=== PATIENT | female | born 1995 | race African-American/Black ===

== ENCOUNTER 2018-10-13 17:09 | Emergency (ER) | payer MEDICAID, SELFPAY ==
[2018-10-13 17:10] VITALS: BP 124/80; PULSE 92; RESP 16; TEMP 36.2; O2SAT 100; BMI 37.0
--- NOTE | 2018-10-13 17:28 | US_ITS ---
STUDY: FIRST TRIMESTER OBSTETRICAL ULTRASOUND REASON FOR EXAM: Female, 23 years old. Bleeding, early , cramping LMP: 08/05/2018 TECHNIQUE: Transvaginal TECHNICAL QUALITY: Adequate. PRIOR ULTRASOUND: None. FINDINGS: There is visualization of a single gestational sac in a normal intrauterine position. The mean sac diameter (MSD) measures 3.96 cm, indicating an estimated gestational age (EGA) of 9 weeks, 4 days. The gestational sac shape is within normal limits. There is a visualized yolk sac. The yolk sac measures 4.3 mm. The placenta is non-visualized due to early gestation. There is visualization of a live embryo. The crown-rump length (CRL) measures 3.16 cm, indicating an estimated gestational age (EGA) of 10 weeks, 1 days. There is demonstrated cardiac activity with a heart rate of 164 bpm. The estimated gestation age (EGA) by LMP is 9 weeks, 6 days. The estimated date of delivery (DAI) by LMP is 05/12/2019. The estimated gestation age (EGA) by US is 9 weeks, 6 days. The estimated date of delivery (DAI) by US is 05/12/2019. The uterus measures 13.4 x 7.9 x 6.6 cm. There is no demonstrated uterine fibroid. The cervix is closed. The right ovary is not visualized. The left ovary measures 4.1 x 2.5 x 2.1 cm. There is no left ovarian cyst. There is no visualized left adnexal mass or complex lesion. There is no fluid in the cul de sac. US/Transvaginal w/Preg US IMPRESSION: 1. Early intrauterine correlating to gestational age of 9 weeks and 6 days. Embryonic cardiac activity measured at 164 bpm. Electronically Signed: Chauncey Christopher MD at 19:00 EST , Service support ,
[2018-10-13] MEDS: Acetaminophen 500 MG Tablet 1000 MG PO (17:42)
[2018-10-13] MEDS: 0.9% Normal Saline 1,000 ML 1000 ML IV (17:42)
[2018-10-13 17:53] LABS: Absolute Lymphocyte Count 2.41 X10^3/ul (0.83-4.51); Absolute Neutrophil Count 6.4 X10^3/uL (2.0-7.7); Basophil# 0.01 X10^3/uL; Basophil% 0.1 % (0-1); Eosinophils% 1.1 % (0-5); Hematocrit 39.3 % (37-47); Hemoglobin 13.4 g/dl (12.0-15.0); Lymphocyte # 2.41 X10^3/ul (4.0); Lymphocyte % 25.3 % (19-41); Mean Corp Hgb Conc 34.1 g/gl (32-36); Mean Corpuscular Hgb 31.8 pg (27.0-32.0); Mean Corpuscular Volume 93.3 fL (81-99); Mean Platelet Vol. 9.6 fl (6.2-12.0); Monocyte# 0.52 X10^3/uL; Monocyte% 5.5 % (0-10); Neutrophil # 6.43 X10^3/uL (2.7-7.7); Neutrophil % 67.5 % (47-70); POSITIVE COUNT NO; POSITIVE DIFFERENTIAL NO; POSITIVE MORPHOLOGY NO; Platelet Count 256 K/mm3 (150-450); RBC Distribution Width CV 12.2 % (11.6-14.6); RBC Distribution Width SD 41.6 fl (35.1-43.9); Red Blood Count 4.21 M/mm3 (4.2-5.4); White Blood Count 9.5 K/mm3 (4.4-11.0)
[2018-10-13 18:05] LABS: Anion Gap 7 (5-15); BUN 7 mg/dL (7-18); Calcium,Total 8.6 mg/dL (8.5-10.1); Chloride 107 mmol/L (98-107); Creatinine, Serum 0.54 mg/dL (0.55-1.02); EST Glomerular Filtration Rate 145 mL/min (>60); Est Glom Filt Rate - Afr Amer 176 mL/min (>60); Estimated Creatinine Clearance 131.74 ml/min; Glucose 75 mg/dL (74-106); Potassium 3.7 mmol/L (3.5-5.1); Sodium Level 139 mmol/L (136-145)
[2018-10-13 19:01] LABS: Red Blood Cells-Urine 0 SEEN /hpf (0-5)
[2018-10-13 19:09] VITALS: BP 108/60; PULSE 81; RESP 14; O2SAT 99
[2018-10-13 19:09] LABS: Color, Urine Yellow (Yellow); Glucose, Dipstick 50 mg/dl (Normal); Ketone-Dipstick 5 mg/dl (Negative); Leukocyte Esterase-Dipstick 100 /ul (Negative); Nitrite-Dipstick Negative (Negative); Occult Blood-Urine 250 /ul (Negative); Protein-Dipstick Negative (Negative); Specific Gravity, Urine 1.025 (1.002-1.030); Urine Clarity Clear (Clear); Urine Urobilinogen 4 mg/dl (Normal)
[2018-10-13 19:15] LABS: Squamous Epithelial Cells - UA 5-10 SEEN /hpf (5-10); Urine Bilirubin Dipstick 1 mg/dL (Negative); White Blood Cells 0-5 SEEN /hpf (0-5)
[2018-10-13 19:16] LABS: Mucous, Urine 1+ /hpf (<or=2+)
[2018-10-13 19:23] LABS: Amorphous Sediment 1+; Bacteria 1+ /hpf (None Seen)
--- NOTE | 2018-10-13 19:54 | ED.VISSUMM ---
- ER Visit Summary Date of Service: 10/13/18 Chief Complaint: Pelvic pain History of Present Illness: The patient is a 23 F with pelvic pain. She is AB 1 at 9 weeks and 6 days. She follows with Dr. Campoverde. She reports pelvic pain that started 2 hours ago. She has lower abdominal cramping. She also has bleeding that is similar to a menstrual period. No discharge. No fevers. No urinary symptoms. No GI symptoms. Physical Examination: Afebrile and vital signs unremarkable. Alert and oriented. No acute distress. Abdomen soft and nontender. HEENT appears normal. Pelvic exam deferred. Test Results: CBC normal. BMP unremarkable. Urinalysis shows 0-5 white cells, 5-10 epithelial cells, 1+ bacteria. I sent a culture. HCG was 92,000. Blood type was O+. Ultrasound showed a closed cervix, live IUP at 9 weeks and 6 days, and heart rate 164. Emergency Department Course and Treatment: Patient was treated with Tylenol for her cramps. Workup as above. She has a live intrauterine . Cervix is closed. Urine culture pending. Otherwise labs and vitals unremarkable. Patient has a threatened miscarriage. I discussed this with her. She will be discharged to follow-up with her INSTRUCTOR [employer]ER[employer]. Return for increasing pain, bleeding, or any other new or worsening issues. Treatment Plan: As above Disposition: Discharge Impression: 1. Threatened miscarriage This note was generated with [employer] software. It may contain incorrect words, spelling, and punctuation that were not noted in review of the chart prior to signing ED Disposition - Plan for ED Patient: Referrals: Care Physician,No Primary [Primary Care Provider] -
--- NOTE | 2018-10-13 19:57 | ED.DCSUM_ITS ---
- ER Visit Summary Date of Service: 10/13/18 Chief Complaint: Pelvic pain History of Present Illness: The patient is a 23 F with pelvic pain. She is AB 1 at 9 weeks and 6 days. She follows with Dr. Campoverde. She reports pelvic pain that started 2 hours ago. She has lower abdominal cramping. She also has bleeding that is similar to a menstrual period. No discharge. No fevers. No urinary symptoms. No GI symptoms. Physical Examination: Afebrile and vital signs unremarkable. Alert and oriented. No acute distress. Abdomen soft and nontender. HEENT appears normal. Pelvic exam deferred. Test Results: CBC normal. BMP unremarkable. Urinalysis shows 0-5 white cells, 5-10 epithelial cells, 1+ bacteria. I sent a culture. HCG was 92,000. Blood type was O+. Ultrasound showed a closed cervix, live IUP at 9 weeks and 6 days, and heart rate 164. Emergency Department Course and Treatment: Patient was treated with Tylenol for her cramps. Workup as above. She has a live intrauterine . Cervix is closed. Urine culture pending. Otherwise labs and vitals unremarkable. Patient has a threatened miscarriage. I discussed this with her. She will be discharged to follow-up with her INTERACTIVE ACCOUNT MANAGER. Return for increasing pain, bleeding, or any other new or worsening issues. Treatment Plan: As above Disposition: Discharge Impression: 1. Threatened miscarriage This note was generated with [employer] software. It may contain incorrect words, spelling, and punctuation that were not noted in review of the chart prior to signing ED Disposition - Plan for ED Patient: Referrals: Care Physician,No Primary [Primary Care Provider] -
--- NOTE | 2018-10-13 19:57 | ED.DEP ---
ED Disposition - Plan for ED Patient: Instructions: ED Miscarriage Poss Additional Instructions: Follow up with your OBGYN.
[2018-10-13 20:10] VITALS: BP 110/74; PULSE 90; RESP 14; O2SAT 99
== END 2018-10-13 20:11 | disposition home or self-care (01) ==
PROVIDERS: Emergency Provider Emergency Medicine
DX: O20.0 Threatened abortion (principal); Z3A.09 9 weeks gestation of pregnancy
CPT/HCPCS: 76817; 80048; 81001; 84702; 85025; 86900; 86901; 87086; 87088; 96360; 99283; J7030; A4216

== ENCOUNTER 2018-11-21 13:30 | Emergency (ER) | payer MEDICAID, SELFPAY ==
[2018-11-21 13:30] VITALS: BP 131/74; PULSE 137; RESP 15; TEMP 37.1; O2SAT 98; BMI 35.6
--- NOTE | 2018-11-21 14:03 | ED.VISSUMM ---
- ER Visit Summary Date of Service: 11/21/18 Chief Complaint: Possible STD History of Present Illness: The patient is a 23 F who presents with possible STD. Patient states she recently found out that her was cheating on her. Patient is concerned that she may have an STD because of this. Patient denies any vaginal discharge. Patient denies any dysuria or hematuria. Patient denies any abdominal pain or cramping. Patient states she is approximately 15 weeks . Physical Examination: Vital signs are stable. Patient is afebrile. Patient is in no acute distress. Oral mucosa is pink and moist. Neck is supple. Trachea is midline. There is no JVD noted. Heart was regular rate and rhythm. Lungs are clear and equal bilateral. Abdomen is soft. Bowel sounds are normal. There is no tenderness. There is no guarding noted. Skin is warm dry. Cranial nerves II through XII are intact. There are no focal motor or sensory deficits noted. The remaining physical exam is within normal limits. Test Results: Urinalysis was normal. GC and Chlamydia cultures are pending. Emergency Department Course and Treatment: She was given Rocephin and Zithromax here. Patient was instructed to avoid sexual intercourse until she follows up with her primary care physician or INDUSTRY SEGMENT SPECIALIST. Patient was instructed to follow-up in 5-7 days. She understood and was agreeable with the plan. All questions were answered. Disposition: Discharge home Impression: STD exposure This note was generated with [employer] dictation software. It may contain incorrect words, spelling, and punctuation that were not noted in review of the chart prior to signing ED Disposition - Plan for ED Patient: Disposition: Home or Assisted Living Diagnosis: STD exposure Instructions: ED Urethritis Infec Vs Inflam Fem Referrals: Care Physician,No Primary [Primary Care Provider] - Demetrius Sagastume MD [STAFF PHYSICIAN] - 5-7 Days Additional Instructions: Avoid sexual intercourse until you follow-up with your primary care physician or INDUSTRY SEGMENT SPECIALIST.
--- NOTE | 2018-11-21 14:07 | ED.DCSUM_ITS ---
- ER Visit Summary Date of Service: 11/21/18 Chief Complaint: Possible STD History of Present Illness: The patient is a 23 F who presents with possible STD. Patient states she recently found out that her was cheating on her. Patient is concerned that she may have an STD because of this. Patient d enies any vaginal discharge. Patient denies any dysuria or hematuria. Patient denies any abdominal pain or cramping. Patient states she is approximately 15 weeks . Physical Examination: Vital signs are stable. Patient is afebrile. Patient is in no acute distress. Oral mucosa is pink and moist. Neck is supple. Trachea is midline. There is no JVD noted. Heart was regular rate and rhythm. Lungs are clear and equal bilateral. Abdomen is soft. Bowel sounds are normal. There is no tenderness. There is no guarding noted. Skin is warm dry. Cranial nerves II through XII are intact. There are no focal motor or sensory deficits noted. The remaining physical exam is within normal limits. Test Results: Urinalysis was normal. GC and Chlamydia cultures are pending. Emergency Department Course and Treatment: She was given Rocephin and Zithromax here. Patient was instructed to avoid sexual intercourse until she follows up with her primary care physician or CHRONIC SPECIALIST. Patient was instructed to follow-up in 5-7 days. She understood and was agreeable with the plan. All questions were answered. Disposition: Discharge home Impression: STD exposure This note was generated with [employer] dictation software. It may contain incorrect words, spelling, and punctuation that were not noted in review of the chart prior to signing ED Disposition - Plan for ED Patient: Disposition: Home or Assisted Living Diagnosis: STD exposure Instructions: ED Urethritis Infec Vs Inflam Fem Referrals: Care Physician,No Primary [Primary Care Provider] - Demetrius Sagastume MD [STAFF PHYSICIAN] - 5-7 Days Additional Instructions: Avoid sexual intercourse until you follow-up with your primary care physician or CHRONIC SPECIALIST.
[2018-11-21 14:39] LABS: Red Blood Cells-Urine 0 SEEN /hpf (0-5)
[2018-11-21 14:48] LABS: Color, Urine Yellow (Yellow); Glucose, Dipstick 250 mg/dl (Normal); Leukocyte Esterase-Dipstick 25 /ul (Negative); Nitrite-Dipstick Negative (Negative); Occult Blood-Urine Negative /ul (Negative); Protein-Dipstick 30 mg/dl (Negative); Urine Bilirubin Dipstick Negative (Negative); Urine Clarity Sl. Cloudy (Clear); Urine Urobilinogen 4 mg/dl (Normal)
[2018-11-21 14:53] LABS: Ketone-Dipstick 150 mg/dl (Negative)
[2018-11-21 14:54] LABS: Bacteria 1+ /hpf (None Seen); Mucous, Urine 2+ /hpf (<or=2+); Squamous Epithelial Cells - UA 0-5 SEEN /hpf (5-10); White Blood Cells 0-5 SEEN /hpf (0-5)
[2018-11-21] MEDS: Azithromycin 250 MG Tablet 1000 MG PO (16:28)
[2018-11-21] MEDS: Ceftriaxone 500 MG Vial 250 MG IM (16:28)
--- NOTE | 2018-11-21 16:53 | ED.RN ---
INJECTION SITE ASSESSED FOR REACTION AND NO SWELLING, REDNESS, OR TENDERNESS WAS NOTED.
[2018-11-21 17:17] LABS: Chlamydia Trachomatis by PCR Negative (Negative); Neisserai gonorrhoeae by PCR Negative (Negative); Probe Check PASS; Sample Adequacy Control PASS; Specimen Processing Control PASS
== END 2018-11-21 16:54 | disposition home or self-care (01) ==
PROVIDERS: Emergency Provider Emergency Medicine
DX: O99.89 Other specified diseases and conditions complicating pregnancy, childbirth and the puerperium (principal); Z20.2 Contact with and (suspected) exposure to infections with a predominantly sexual mode of transmission; O99.332 Smoking (tobacco) complicating pregnancy, second trimester; Z3A.15 15 weeks gestation of pregnancy
CPT/HCPCS: 81001; 87491; 87591; 96372; 99283

== ENCOUNTER 2018-12-27 07:28 | Emergency (ER) | payer MEDICAID, SELFPAY ==
[2018-12-27] VITALS (8 sets, daily range): BP systolic 121–129; BP diastolic 64–78; PULSE 67–110; RESP 14–18; TEMP 36.6–36.7; O2SAT 99–100; BMI 36.1
--- NOTE | 2018-12-27 07:46 | ED.VIS.PSYCH ---
History of Present Illness Chief Complaint: Anxiety Informant: Patient, Family Onset: Weeks Context: Sudden Onset Conflict: Family Timing: Continuous Current Severity: Moderate Maximum Severity: Severe Worsened by: Situational factors, - - Suicidal thoughts after first dose of Prozac Monday. Has not taken Prozac since. Prozac was prescribed by steamer gum candy. Relieved by: Nothing Associated Symptoms: Depressed, Change in sleeping, Paranoia. Negative for: Suicidal Thoughts, Easily distracted, Grandiosity, Flight of Ideas, Increased activity, Pressured Speech, Agitated, Hostile, Threatening, Confusion, Visual Hallucinations, Auditory Hallucinations Specific plan (suicidal thought): No suicidal ideation Narrative: Patient is a 23-year-old woman who is approximately 5 months gestation. She states she found out that her was cheating on her. She had an encounter with a male after she knew this. She states she was tested for HIV 2 weeks after the encounter. She reports problems with sleep, anxiety, chest pain, shortness of breath, anxiety. She informed her steamer gum candy who prescribed Prozac. She discontinued after first dose. She is scheduled to have an appointment on December 31 at [facility]. She denies suicidal homicidal thoughts. She believes any time she has any type of symptom the cause is that she is HIV positive. Mother is requesting admission. Prior similar symptoms: Yes Recent Illness/Hospitalization: No Past Medical History - Allergies and Home Meds Allergies/Adverse Reactions: Allergies No Known Allergies Allergy (Verified 12/27/18 07:33) Primary Care Physician: Care Physician,No Primary [Primary Care Provider] - Prior records reviewed: Yes Surgical History: noncontributory Lives: Spouse/ Significant Other Smoking Status: Current every day smoker Drugs: None Review of Systems General: Denies: Chills, Fever, Sweats Eyes: Denies: Visual changes - bilaterally, Blurred Vision - bilaterally, Diplopia ENT: Denies: Rhinorrhea, Sore throat Cardiovascular: Reports: Chest pain, Palpitations Respiratory: Reports: Dyspnea. Denies: Cough, Dyspnea on exertion Gastrointestinal: Reports: Nausea. Denies: Abdominal pain, Vomiting, Diarrhea, Melena, Hematochezia Genitourinary: Denies: Dysuria, Hematuria, Frequency Musculoskeletal: Reports: Extremity Pain - Patchy discomfort and numbness upper extremity. Denies: Myalgias, Arthralgias, Neck pain, Back pain Skin: Denies: Rash, Wounds Neurological: Reports: Parasthesia. Denies: Headache, Weakness, Numbness Psych: Reports: Depression, Anxiety. Denies: Suicidal thoughts, Suicidal ideations Hematologic: Denies: Easy bruising, Easy bleeding Physical Exam Vital Signs/Narrative: Vital Signs Temp Pulse Resp BP Pulse Ox 12/27/18 07:29 97.9 F 110 H 18 126/72 H 100 Inital Vital Signs reviewed: Yes General: Well nourished, Well developed Head: Normocephalic, Atraumatic Eyes: Perrl, EOMI ENT: Moist mucous membranes, No rhinorrhea Neck: Supple, Nontender Cardiovascular: Regular rate, Regular rhythm, No murmurs Respiratory: No distress, CTA bilaterally, Chest nontender Abdomen: Soft, Nontender, Nondistended, Normal bowel sounds Back: Nontender, Normal Inspection Extremities: Nontender, No Edema Skin: Normal color, No rash Neurological: Alert, Oriented x3, Cranial nerves II-XII grossly intact, Normal Strength, Normal Sensation, Normal Gait Psych: Normal Speech Pattern, No suicidal or homicidal ideation, Normal Appearance, Labile, Limited Insight. Negative for: Normal Stable Appropriate Affect, Good Insight, Good Judgement, Poverty of Speech, Flight of Ideas, Incoherent thoughts, Suicidal thoughts, Homicidal thoughts, Hallucinations, Paranoid Ideation Diagnostic/Tx/Re-eval Laboratory Results 12/27/18 12/27/18 12/27/18 09:45 10:28 10:28 WBC 9.5 RBC 4.30 Hgb 14.1 Hct 39.7 MCV 92.3 MCH 32.8 H MCHC 35.5 RDW 12.8 RDW Differential 43.0 Plt Count 249 MPV 9.8 Immature Gran % (Auto) 0.600 Neut % (Auto) 75.5 H Lymph % (Auto) 18.3 L [place] % (Auto) 4.9 Eos % (Auto) 0.5 Baso % (Auto) 0.2 Absolute Neuts (auto) 7.1 Absolute Lymphs (auto) 1.73 Total Counted Not Reportable Sodium 138 Potassium 3.5 Chloride 106 Carbon Dioxide 24.0 Anion Gap 8 BUN 5 L Creatinine 0.55 Estim Creat Clear Calc 129.35 Est GFR (MDRD) Af Amer 173 Est GFR (MDRD) Non-Af 143 BUN/Creatinine Ratio 9.1 L Glucose 83 Calcium 9.3 Urine Opiates Screen NEGATIVE Urine Methadone Screen NEGATIVE Ur Barbiturates Screen NEGATIVE Ur Phencyclidine Scrn NEGATIVE Ur Amphetamines Screen NEGATIVE U Methamphetamin-MDMA NEGATIVE U Benzodiazepines Scrn NEGATIVE Urine Cocaine Screen NEGATIVE U Cannabinoids Screen POSITIVE H Ur Drug Screen Comment Ethyl Alcohol 12/27/18 10:28 WBC RBC Hgb Hct MCV MCH MCHC RDW RDW Differential Plt Count MPV Immature Gran % (Auto) Neut % (Auto) Lymph % (Auto) [place] % (Auto) Eos % (Auto) Baso % (Auto) Absolute Neuts (auto) Absolute Lymphs (auto) Total Counted Sodium Potassium Chloride Carbon Dioxide Anion Gap BUN Creatinine Estim Creat Clear Calc Est GFR (MDRD) Af Amer Est GFR (MDRD) Non-Af BUN/Creatinine Ratio Glucose Calcium Urine Opiates Screen Urine Methadone Screen Ur Barbiturates Screen Ur Phencyclidine Scrn Ur Amphetamines Screen U Methamphetamin-MDMA U Benzodiazepines Scrn Urine Cocaine Screen U Cannabinoids Screen Ur Drug Screen Comment Ethyl Alcohol 9.0 Patient with anxiety and panic attacks since she became aware that her had an affair. She then had an encounter with gentleman once according to patient. She spoke with her steamer gum candy and the steamer gum candy prescribed Prozac. She had a adverse reaction after 1 dose. She discontinued the Prozac. In my opinion patient has muscle depression with anxiety and panic attacks related to her having an affair and her having an affair. She is scheduled for an appointment. Mother is requesting admission. In my professional opinion patient does not meet criteria for admission. Consult placed with case management to facilitate outpatient intense follow-up At 0825 mother approached the position room. Why was dictating she asked why I did not test her for HIV. She was informed that she was recently tested there is a protocol and one needs to wait. She then asked if crisis was consulted. I informed her that case management was consulted. Furthermore, Dr. Shayna Cyr was paged and informed of what has transpired. She asked to personally speak with patient and mother. Spoke with Trudi from case management. She will have someone down to see patient and her mother. I was informed at 1005 that patient now has suicidal thoughts with a specific plan. This is new information. Patient initially denied. License social services and counseling center believe she needs to be admitted. Therefore will obtained screening labs for medical clearance and inpatient clearance. At approximately 1030 I walked by patient's room. Door was open. She was sitting up laughing smiling talking to attendant who was observing her for suicide precautions. I was informed at 1037 that patient began to cry when she was told her blood had to be drawn. She requested HIV testing. She was informed that since her test from 2 weeks ago was negative there is no indication to repeat blood work and there is a protocol and will adhere to it. Tox screen was positive for cannabis. Alcohol is present. Patient's social services states based on what she was told she will need admission. She was informed of her labile emotions. ED Disposition - Plan for ED Patient: Disposition: Acute Care Hospital - Other Diagnosis: Adjustment reaction with anxiety and depression Referrals: Care Physician,No Primary [Primary Care Provider] -
--- NOTE | 2018-12-27 07:58 | ED.DCSUM_ITS ---
History of Present Illness Chief Complaint: Anxiety Informant: Patient, Family Onset: Weeks Context: Sudden Onset Conflict: Family Timing: Continuous Current Severity: Moderate Maximum Severity: Severe Worsened by: Situational factors, - - Suicidal thoughts after first dose of Prozac Monday. Has not taken Prozac since. Prozac was prescribed by horse doctor. Relieved by: Nothing Associated Symptoms: Depressed, Change in sleeping, Paranoia. Negative for: Suicidal Thoughts, Easily distracted, Grandiosity, Flight of Ideas, Increased activity, Pressured Speech, Agitated, Hostile, Threatening, Confusion, Visual Hallucinations, Auditory Hallucinations Specific plan (suicidal thought): No suicidal ideation Narrative: Patient is a 23-year-old woman who is approximately 5 months gestation. She states she found out that her was cheating on her. She had an encounter with a male after she knew this. She states she was tested for HIV 2 weeks after the encounter. She reports problems with sleep, anxiety, chest pain, shortness of breath, anxiety. She informed her horse doctor who prescribed Prozac. She discontinued after first dose. She is scheduled to have an appointment on December 31 at [facility]. She denies suicidal homicidal thoughts. She believes any time she has any type of symptom the cause is that she is HIV positive. Mother is requesting admission. Prior similar symptoms: Yes Recent Illness/Hospitalization: No Past Medical History - Allergies and Home Meds Allergies/Adverse Reactions: Allergies No Known Allergies Allergy (Verified 12/27/18 07:33) Primary Care Physician: Care Physician,No Primary [Primary Care Provider] - Prior records reviewed: Yes Surgical History: noncontributory Lives: Spouse/ Significant Other Smoking Status: Current every day smoker Drugs: None Review of Systems General: Denies: Chills, Fever, Sweats Eyes: Denies: Visual changes - bilaterally, Blurred Vision - bilaterally, Diplopia ENT: Denies: Rhinorrhea, Sore throat Cardiovascular: Reports: Chest pain, Palpitations Respiratory: Reports: Dyspnea. Denies: Cough, Dyspnea on exertion Gastrointestinal: Reports: Nausea. Denies: Abdominal pain, Vomiting, Diarrhea, Melena, Hematochezia Genitourinary: Denies: Dysuria, Hematuria, Frequency Musculoskeletal: Reports: Extremity Pain - Patchy discomfort and numbness upper extremity. Denies: Myalgias, Arthralgias, Neck pain, Back pain Skin: Denies: Rash, Wounds Neurological: Reports: Parasthesia. Denies: Headache, Weakness, Numbness Psych: Reports: Depression, Anxiety. Denies: Suicidal thoughts, Suicidal ideations Hematologic: Denies: Easy bruising, Easy bleeding Physical Exam Vital Signs/Narrative: Vital Signs Temp Pulse Resp BP Pulse Ox 12/27/18 07:29 97.9 F 110 H 18 126/72 H 100 Inital Vital Signs reviewed: Yes General: Well nourished, Well developed Head: Normocephalic, Atraumatic Eyes: Perrl, EOMI ENT: Moist mucous membranes, No rhinorrhea Neck: Supple, Nontender Cardiovascular: Regular rate, Regular rhythm, No murmurs Respiratory: No distress, CTA bilaterally, Chest nontender Abdomen: Soft, Nontender, Nondistended, Normal bowel sounds Back: Nontender, Normal Inspection Extremities: Nontender, No Edema Skin: Normal color, No rash Neurological: Alert, Oriented x3, Cranial nerves II-XII grossly intact, Normal Strength, Normal Sensation, Normal Gait Psych: Normal Speech Pattern, No suicidal or homicidal ideation, Normal Appearance, Labile, Limited Insight. Negative for: Normal Stable Appropriate Affect, Good Insight, Good Judgement, Poverty of Speech, Flight of Ideas, Incoherent thoughts, Suicidal thoughts, Homicidal thoughts, Hallucinations, Paranoid Ideation Diagnostic/Tx/Re-eval Laboratory Results 12/27/18 12/27/18 12/27/18 09:45 10:28 10:28 WBC 9.5 RBC 4.30 Hgb 14.1 Hct 39.7 MCV 92.3 MCH 32.8 H MCHC 35.5 RDW 12.8 RDW Differential 43.0 Plt Count 249 MPV 9.8 Immature Gran % (Auto) 0.600 Neut % (Auto) 75.5 H Lymph % (Auto) 18.3 L [place] % (Auto) 4.9 Eos % (Auto) 0.5 Baso % (Auto) 0.2 Absolute Neuts (auto) 7.1 Absolute Lymphs (auto) 1.73 Total Counted Not Reportable Sodium 138 Potassium 3.5 Chloride 106 Carbon Dioxide 24.0 Anion Gap 8 BUN 5 L Creatinine 0.55 Estim Creat Clear Calc 129.35 Est GFR (MDRD) Af Amer 173 Est GFR (MDRD) Non-Af 143 BUN/Creatinine Ratio 9.1 L Glucose 83 Calcium 9.3 Urine Opiates Screen NEGATIVE Urine Methadone Screen NEGATIVE Ur Barbiturates Screen NEGATIVE Ur Phencyclidine Scrn NEGATIVE Ur Amphetamines Screen NEGATIVE U Methamphetamin-MDMA NEGATIVE U Benzodiazepines Scrn NEGATIVE Urine Cocaine Screen NEGATIVE U Cannabinoids Screen POSITIVE H Ur Drug Screen Comment Ethyl Alcohol 12/27/18 10:28 WBC RBC Hgb Hct MCV MCH MCHC RDW RDW Differential Plt Count MPV Immature Gran % (Auto) Neut % (Auto) Lymph % (Auto) [place] % (Auto) Eos % (Auto) Baso % (Auto) Absolute Neuts (auto) Absolute Lymphs (auto) Total Counted Sodium Potassium Chloride Carbon Dioxide Anion Gap BUN Creatinine Estim Creat Clear Calc Est GFR (MDRD) Af Amer Est GFR (MDRD) Non-Af BUN/Creatinine Ratio Glucose Calcium Urine Opiates Screen Urine Methadone Screen Ur Barbiturates Screen Ur Phencyclidine Scrn Ur Amphetamines Screen U Methamphetamin-MDMA U Benzodiazepines Scrn Urine Cocaine Screen U Cannabinoids Screen Ur Drug Screen Comment Ethyl Alcohol 9.0 Patient with anxiety and panic attacks since she became aware that her had an affair. She then had an encounter with gentleman once according to patient. She spoke with her horse doctor and the horse doctor prescribed Prozac. She had a adverse reaction after 1 dose. She discontinued the Prozac. In my opinion patient has muscle depression with anxiety and panic attacks related to her having an affair and her having an affair. She is scheduled for an appointment. Mother is requesting admission. In my professional opinion patient does not meet criteria for admission. Consult placed with case management to facilitate outpatient intense follow-up At 0825 mother approached the position room. Why was dictating she asked why I did not test her for HIV. She was informed that she was recently tested there is a protocol and one needs to wait. She then asked if crisis was consulted. I informed her that case management was consulted. Furthermore, Dr. Shayna Cyr was paged and informed of what has transpired. She asked to personally speak with patient and mother. Spoke with Trudi from case management. She will have someone down to see patient and her mother. I was informed at 1005 that patient now has suicidal thoughts with a specific plan. This is new information. Patient initially denied. License social group worker and counseling center believe she needs to be admitted. Therefore will obtained screening labs for medical clearance and inpatient clearance. At approximately 1030 I walked by patient's room. Door was open. She was sitting up laughing smiling talking to attendant who was observing her for suicide precautions. I was informed at 1037 that patient began to cry when she was told her blood had to be drawn. She requested HIV testing. She was informed that since her test from 2 weeks ago was negative there is no indication to repeat blood work and there is a protocol and will adhere to it. Tox screen was positive for cannabis. Alcohol is present. Patient's social group worker states based on what she was told she will need admission. She was informed of her labile emotions. ED Disposition - Plan for ED Patient: Disposition: Acute Care Hospital - Other Diagnosis: Adjustment reaction with anxiety and depression Referrals: Care Physician,No Primary [Primary Care Provider] -
[2018-12-27] MEDS: LORazepam 0.5 MG Tablet PO (08:03)
--- NOTE | 2018-12-27 08:49 | NURSING ---
SAUL, CASE MANAGEMENT TALKED TO DR ELIDIA VIVEROS TALKED TO DR BRENNER AND PATIENT
--- NOTE | 2018-12-27 08:49 | ED.RN ---
dr Cyr calls. would like pt to go to [facility]
--- NOTE | 2018-12-27 09:15 | NURSING ---
[facility] COMING FOR PATIENT. THEY CALLED US
--- NOTE | 2018-12-27 09:17 | ED.RN ---
edgar from counseling center called to say that father of patient contacted them stating his daughter was suicidal and we were not taking it serious. this rn talked with crises. crises worker to come to the er and talk with pt
--- NOTE | 2018-12-27 09:29 | NURSING ---
SAMANTHA, CRISIS, HERE
--- NOTE | 2018-12-27 09:31 | NURSING ---
[id number] CALLED SAUL, CASE MANAGEMENT. ASKED HER TO COME TO ROOM FOR PATIENT. SHE WAS LOOKING FOR URBAN REDEVELOPMENT SPECIALIST ANGEL. ASKED TO EITHER HER COME DOWN UNTIL ANGEL SHOWS UP
--- NOTE | 2018-12-27 09:34 | ED.RN ---
pt mother remains in room. screaming and swearing that this facility is ignoring her. dr stewart aware. states call police and have security.remove pt. this rn back to room. mother starts yelling at this rn. i informed them that crises is here. this rn also apologized to pt. pt states.it's not you. pt states it's the dr. he won't take me serious. states heard dr say they can just go to another hospital. this rn informed dr pt probably will need a sitter. dr states no i'm not changing my documentation. pt can go
--- NOTE | 2018-12-27 09:37 | ED.RN ---
Friend called this sandblasting supervisor and voiced concern for pt. Pt has stated to multiple people that she is suicidal and the friend feels like the dr is not taking her seriously. I assured her I would come up and talk to the pt and the Dr. Dr Gan states that he is not changing his documentation because he is charting what the pt told him.
--- NOTE | 2018-12-27 09:41 | NURSING ---
ANGEL, YARN WASHER, HERE TO TALK TO DR BRENNER
--- NOTE | 2018-12-27 10:10 | CM.ED ---
SOCIAL WORK THIS WORKER TO PATIENT'S ROOM. NURSEDINAH IN ROOM SPEAKING WITH PATIENT AND PATIENT'S MOTHER. PER DINAH, MARVEL WAS IN TO SEE PATIENT AND IS WORKING ON PLACEMENT. THIS WORKER TO FOLLOW UP.
[2018-12-27 10:42] LABS: Amphetamine Urine VISTA NEGATIVE (<1000 ng/mL); Barbiturate Urine VISTA NEGATIVE (< 200 ng/mL); Benzodiazepine Urine VISTA NEGATIVE (< 200 ng/mL); Cocaine Urine VISTA NEGATIVE (< 300 ng/mL); Ecstacy Urine VISTA NEGATIVE (< 500 ng/mL); Methadone Urine VISTA NEGATIVE (< 300 ng/mL); PCP Urine VISTA NEGATIVE (< 25 ng/mL); THC Urine VISTA POSITIVE (< 50 ng/mL); Vista UDS pH Range 6
[2018-12-27 10:47] LABS: Absolute Lymphocyte Count 1.73 X10^3/ul (0.83-4.51); Absolute Neutrophil Count 7.1 X10^3/uL (2.0-7.7); Basophil# 0.02 X10^3/uL; Basophil% 0.2 % (0-1); Eosinophil# 0.05 X10^3/uL; Eosinophils% 0.5 % (0-5); Hematocrit 39.7 % (37-47); Hemoglobin 14.1 g/dl (12.0-15.0); Lymphocyte # 1.73 X10^3/ul (4.0); Lymphocyte % 18.3 % (19-41); Mean Corp Hgb Conc 35.5 g/gl (32-36); Mean Corpuscular Hgb 32.8 pg (27.0-32.0); Mean Corpuscular Volume 92.3 fL (81-99); Mean Platelet Vol. 9.8 fl (6.2-12.0); Monocyte# 0.46 X10^3/uL; Monocyte% 4.9 % (0-10); Neutrophil # 7.13 X10^3/uL (2.7-7.7); Neutrophil % 75.5 % (47-70); Platelet Count 249 K/mm3 (150-450); RBC Distribution Width CV 12.8 % (11.6-14.6); White Blood Count 9.5 K/mm3 (4.4-11.0)
[2018-12-27 10:48] LABS: POSITIVE COUNT NO; POSITIVE DIFFERENTIAL NO; POSITIVE MORPHOLOGY NO
--- NOTE | 2018-12-27 10:52 | CM.ED ---
Social Work Received call at 0915 from Trudi Stockton in Case Management department regarding request by the ED for a social work consult. Informed Trudi that this com writer can address consult. Received another call from Trudi at 0925 who states the ED has called again requesting a social work visit. Presented to the ED at approximately 0940. At time of presentation to the ED, the [facility] Crisis team in the ED and assessing patient for mental health needs. This com writer spoke with Dr. Gan. Informed Dr. Gan that this com writer is available to assist if needs arise but at this time will defer to aids social worker who is currently assessing patient for aftercare needs. Updated fire extinguisher charger for the ED as well. Plan: Per aids social worker assessment unless additional needs arise that require hospital social work intervention. -ARNOLD Ledesma, MATERIALS TECH
--- NOTE | 2018-12-27 10:53 | CM.ED ---
SOCIAL WORK CASE DISCUSSED WITH SAMANTHA FROM CRISIS. REFERRAL HAS BEEN SENT TO [facility]. SHIRA CARRIZALES, EQUIPMENT OPERATOR/LABORER/SUPERVISOR, ACOUSTIC INTELLIGENCE SPECIALIST.
[2018-12-27 11:00] LABS: Anion Gap 8 (5-15); BUN 5 mg/dL (7-18); BUN/Creat Ratio 9.1 RATIO (10-20); Calcium,Total 9.3 mg/dL (8.5-10.1); Chloride 106 mmol/L (98-107); Creatinine, Serum 0.55 mg/dL (0.55-1.02); EST Glomerular Filtration Rate 143 mL/min (>60); Est Glom Filt Rate - Afr Amer 173 mL/min (>60); Estimated Creatinine Clearance 129.35 ml/min; Glucose 83 mg/dL (74-106); Potassium 3.5 mmol/L (3.5-5.1); Sodium Level 138 mmol/L (136-145)
--- NOTE | 2018-12-27 11:40 | NURSING ---
PATIENT ACCEPTED AT [facility] [address] TAYLOR NURSE TO NURSE [phone]
--- NOTE | 2018-12-27 12:11 | NURSING ---
CALLED [facility], NO ABLE TO TRANSPORT PATIENT
--- NOTE | 2018-12-27 12:11 | NURSING ---
[facility], ETA IS 1800 TO 1830
--- NOTE | 2018-12-27 12:13 | NURSING ---
CALLED [facility], NOTHING AVAILABLE S
--- NOTE | 2018-12-27 12:14 | NURSING ---
CALLED [facility], NOTHING AVAILABLE
--- NOTE | 2018-12-27 12:20 | NURSING ---
CALLED [facility] FOR TRANSPORT, CAN'T DO
--- NOTE | 2018-12-27 17:13 | EKG12_ITS ---
Test Reason : CP Blood Pressure : / mmHG Vent. Rate : 080 BPM Atrial Rate : 080 BPM P-R Int : 124 ms QRS Dur : 082 ms QT Int : 402 ms P-R-T Axes : -02 089 047 degrees QTc Int : 463 ms Normal sinus rhythm Normal ECG Confirmed by NEYMAR CULP, VIET ([id number]), editor index NIKKIE SANTIAGO ([id number]) on 12/31/2018 11:29:04 AM Referred By: MIRIAN/KIMO Confirmed By:VIET BLACKMON MD
--- NOTE | 2018-12-27 17:14 | ED.RN ---
Called out complaining of chest pain and body tensing up pt states she thinks it might be related to anxiety from waiting so long for transport. Dr. Mukherjee notified. EKG ordered and called for.
== END 2018-12-27 19:19 ==
PROVIDERS: Emergency Provider Emergency Medicine
DX: O99.340 Other mental disorders complicating pregnancy, unspecified trimester (principal); F43.23 Adjustment disorder with mixed anxiety and depressed mood; O99.330 Smoking (tobacco) complicating pregnancy, unspecified trimester; F17.200 Nicotine dependence, unspecified, uncomplicated; O99.320 Drug use complicating pregnancy, unspecified trimester; F12.90 Cannabis use, unspecified, uncomplicated; O99.310 Alcohol use complicating pregnancy, unspecified trimester; F10.99 Alcohol use, unspecified with unspecified alcohol-induced disorder; Y90.9 Presence of alcohol in blood, level not specified; Z3A.00 Weeks of gestation of pregnancy not specified
CPT/HCPCS: 80048; 80307; 80320; 85025; 93005; 99283; G0480

== ENCOUNTER 2019-04-08 04:00 | Outpatient (CLI) | payer MEDICAID, SELFPAY ==
[2018-12-27 07:29] VITALS: BMI 36.1
[2019-04-08 04:17] VITALS: BMI 39.4
--- NOTE | 2019-04-08 05:56 | OB.TRI.PN_ITS ---
Progress Notes Date of Service: 04/08/19 Progress Note: 24-year-old presents with threatened labor. Cervix is 1 thick and high fht 140 moderate variability reactive no decelerations category I tracing [place]: Irritability, irregular contractions Assessment and plan 24-year-old with threatened labor reactive NST minimal cervical dilation, history of previous but no abdominal pain and reassuring heart tones. Reviewed labor precautions DC home kick counts and labor precautions. Follow-up as scheduled with primary back hoe operator [facility] Codes - Urinary/Genital Urinary/Genital CPT Codes: 60034-25 non-stress test Interp
== END 2019-04-08 05:10 | disposition home or self-care (01) ==
LOC: WPOUT 04:14 → WP 04:15
PROVIDERS: Visit Provider Obstetrics & Gynecology Gynecology
DX: O60.00 Preterm labor without delivery, unspecified trimester (principal); Z3A.00 Weeks of gestation of pregnancy not specified
CPT/HCPCS: 59025; 59050; 99218; G0378

== ENCOUNTER 2019-05-04 04:50 | Emergency (ER) | payer MEDICAID, SELFPAY ==
[2019-05-04 04:51] VITALS: BP 129/80; PULSE 86; RESP 15; TEMP 36.7; O2SAT 98; BMI 34.9
--- NOTE | 2019-05-04 05:03 | CT_ITS ---
STUDY: CT ABDOMEN AND PELVIS WITH CONTRAST REASON FOR EXAM: Female, 24 years old. Lower abdominal pain RADIATION DOSAGE (If Supplied By Facility): CTDIvol = ( 20.88 ) mGy, DLP = ( 1034.56 ) mGycm TECHNIQUE: Transaxial images were obtained from the dome of the diaphragm to the symphysis pubis without oral contrast. 100ml IV Isovue 370 was administered. Sagittal and coronal images were reconstructed. Individualized dose optimization techniques were used for this CT. COMPARISON: None. FINDINGS: The lung bases are clear. The liver is normal. No dilated intrahepatic biliary radicles. Previous cholecystectomy. The spleen is normal. The pancreas is normal. Both adrenals are normal. The kidneys are normal with no masses, calculi or hydronephrosis The stomach is normal. There is no bowel distention, acute appendicitis or diverticulitis. No constricting lesions are seen in large bowel. The abdominal wall is intact with no hernias. Postsurgical changes in the skin crease in the lower abdomen There is no ascites or any free intraperitoneal air. No indication of epiploic appendagitis The vascular structures in the retroperitoneum are normal. There is no retrocrural, retroperitoneal or mesenteric adenopathy. The bones and joints are normal. The urinary bladder is normal. The uterus is normal--. There is no inguinal or pelvic adenopathy. There is no inguinal hernia. CT/Abdomen/Pelvis W IV Cont ONLY IMPRESSION: Postsurgical changes involving the site of the bikini incision. No acute appendicitis or diverticulitis Electronically Signed: Arash Martínez MD at 6:51 EDT Tel , Service support ,
--- NOTE | 2019-05-04 05:04 | ED.VIS.GEN ---
History of Present Illness Chief Complaint: Abd Pain Narrative: This patient is a 24-year-old female who presents with abdominal pain. She is 2 weeks . She had a as a repeat . This was at 37 weeks due to labor. She has been doing well up until yesterday when she began to have some burning pain at her incision which was initially just more uncomfortable. However her pain became more severe tonight. It hurts when she tries to stand up straight. She also complains of dysuria frequency and urgency. No fevers nausea vomiting or diarrhea. Past Medical History - Allergies and Home Meds Allergies/Adverse Reactions: Allergies No Known Allergies Allergy (Verified 05/04/19 04:55) Primary Care Physician: Care Physician,No Primary [Primary Care Provider] - Past Medical History: None Surgical History: noncontributory, - - section, cholecystectomy Smoking Status: Never smoker Review of Systems All systems negative except as indicated General: Denies: Chills, Fever Cardiovascular: Denies: Chest pain Respiratory: Denies: Dyspnea Gastrointestinal: Reports: Abdominal pain. Denies: Nausea, Vomiting, Diarrhea Genitourinary: Reports: Dysuria, Frequency Physical Exam Vital Signs/Narrative: Vital Signs Temp Pulse Resp BP Pulse Ox 05/04/19 04:51 98.1 F 86 15 129/80 H 98 Inital Vital Signs reviewed: Yes General: Well nourished, Well developed Eyes: EOMI ENT: Moist mucous membranes Neck: Supple Cardiovascular: Regular rate, Regular rhythm Respiratory: No distress, CTA bilaterally Abdomen: Soft, - - Patient has mild diffuse lower abdominal tenderness with more significant focal tenderness directly at her incision. There is surrounding erythema along the left side of the surgical scar with a couple small open areas there is purulent drainage with foul odor Skin: Normal color Neurological: Alert Psychological: Normal affect Diagnostic/Tx/Re-eval Impressions Abdomen/Pelvis CT 05/04/19 05:03 IMPRESSION: Postsurgical changes involving the site of the bikini incision. No acute appendicitis or diverticulitis Electronically Signed: Arash Martínez MD at 6:51 EDT Tel , Service support , 05/04/19 05:03 Abdomen/Pelvis W IV Cont ONLY [CT] Stat Laboratory Results 05/04/19 05/04/19 05/04/19 05:06 05:06 06:06 WBC 7.1 RBC 4.37 Hgb 13.8 Hct 40.6 MCV 92.9 MCH 31.6 MCHC 34.0 RDW Std Deviation 38.8 RDW Coeff of Jimenez 11.3 L Plt Count 296 MPV 9.2 Immature Gran % (Auto) 0.400 Neut % (Auto) 49.3 Lymph % (Auto) 33.1 [place] % (Auto) 7.8 Eos % (Auto) 8.8 H Baso % (Auto) 0.6 Absolute Neuts (auto) 3.5 Absolute Lymphs (auto) 2.34 Nucleated RBC % 0 Sodium 143 Potassium 3.7 Chloride 111 H Carbon Dioxide 24.0 Anion Gap 8 BUN 7 Creatinine 0.59 Estim Creat Clear Calc 119.53 Est GFR (MDRD) Af Amer 158 Est GFR (MDRD) Non-Af 130 BUN/Creatinine Ratio 11.8 Glucose 86 Calcium 8.5 Urine Color Yellow Urine Clarity Clear Urine pH 7.0 Ur Specific [place] 1.010 Urine Protein 30 H Urine Glucose (UA) Normal Urine Ketones Negative Urine Occult Blood 250 H Urine Nitrite Positive H Urine Bilirubin Negative Urine Urobilinogen 1 H Ur Leukocyte Esterase 25 H Urine RBC 0-5 SEEN Urine WBC 0-5 SEEN Ur Squamous Epith Cells 0-5 SEEN Urine Bacteria RARE Urine Mucus 0 SEEN - Medical Decision Making Patient was given Toradol with improvement of symptoms. Labs unremarkable except nitrates in the urine. CT of the abdomen pelvis shows no acute process, it does show postsurgical changes. Patient does appear to have a wound infection. A wound culture was obtained. We will treat with Keflex. Patient was advised to follow-up with her professional development instructor and does understand to return for new or worsening symptoms. She was instructed on specific signs and symptoms to monitor for. Patient discharged. ED Disposition - Plan for ED Patient: Disposition: Home or Assisted Living Diagnosis: Wound infection after surgery, Cellulitis Instructions: ED Wound Infection after surgery Prescriptions: Cephalexin [Keflex] 500 mg PO Q6 #40 cap Prescription Printed Referrals: Care Physician,No Primary [Primary Care Provider] - Shayna Cyr MD [STAFF PHYSICIAN] -
[2019-05-04 05:14] LABS: Absolute Lymphocyte Count 2.34 X10^3/uL (0.83-4.51); Absolute Neutrophil Count 3.5 X10^3/uL (2.0-7.7); Basophil# 0.04 X10^3/uL; Basophil% 0.6 % (0-1); Eosinophil# 0.62 X10^3/uL; Eosinophils% 8.8 % (0-5); Hematocrit 40.6 % (37-47); Hemoglobin 13.8 g/dL (12.0-15.0); Lymphocyte # 2.34 X10^3/ul (4.0); Lymphocyte % 33.1 % (19-41); Mean Corpuscular Hgb 31.6 pg (27.0-32.0); Mean Corpuscular Volume 92.9 fL (81-99); Mean Platelet Vol. 9.2 fl (6.2-12.0); Monocyte# 0.55 X10^3/uL; Monocyte% 7.8 % (0-10); NRBC Flagged by Analyzer 0 % (0-5); Neutrophil # 3.48 X10^3/uL (2.7-7.7); Neutrophil % 49.3 % (47-70); Platelet Count 296 K/mm3 (150-450); RBC Distribution Width CV 11.3 % (11.6-14.6); RBC Distribution Width SD 38.8 fl (35.1-43.9); Red Blood Count 4.37 M/mm3 (4.2-5.4); White Blood Count 7.1 K/mm3 (4.4-11.0)
[2019-05-04] MEDS: Ketorolac 30 MG/ML Syringe IV (05:19)
[2019-05-04 05:29] LABS: Anion Gap 8 (5-15); BUN 7 mg/dL (7-18); BUN/Creat Ratio 11.8 RATIO (10-20); Calcium,Total 8.5 mg/dL (8.5-10.1); Chloride 111 mmol/L (98-107); Creatinine, Serum 0.59 mg/dL (0.55-1.02); EST Glomerular Filtration Rate 130 mL/min (>60); Est Glom Filt Rate - Afr Amer 158 mL/min (>60); Estimated Creatinine Clearance 119.53 ml/min; Glucose 86 mg/dL (74-106); Potassium 3.7 mmol/L (3.5-5.1); Sodium Level 143 mmol/L (136-145)
[2019-05-04 06:15] LABS: Mucous, Urine 0 SEEN /hpf (<or=2+)
[2019-05-04 06:17] LABS: Color, Urine Yellow (Yellow); Glucose, Dipstick Normal (Normal); Ketone-Dipstick Negative (Negative); Leukocyte Esterase-Dipstick 25 /ul (Negative); Nitrite-Dipstick Positive (Negative); Occult Blood-Urine 250 /ul (Negative); Protein-Dipstick 30 mg/dl (Negative); Urine Bilirubin Dipstick Negative (Negative); Urine Clarity Clear (Clear); Urine Urobilinogen 1 mg/dl (Normal)
[2019-05-04 06:24] LABS: Bacteria RARE /hpf (None Seen); Squamous Epithelial Cells - UA 0-5 SEEN /hpf (5-10); White Blood Cells 0-5 SEEN /hpf (0-5)
[2019-05-04 06:25] LABS: Red Blood Cells-Urine 0-5 SEEN /hpf (0-5)
[2019-05-04 06:54] VITALS: BP 116/67; PULSE 60; RESP 15; O2SAT 97
== END 2019-05-04 07:34 | disposition home or self-care (01) ==
PROVIDERS: Emergency Provider Emergency Medicine
DX: O86.01 Infection of obstetric surgical wound, superficial incisional site (principal); O90.89 Other complications of the puerperium, not elsewhere classified; R39.15 Urgency of urination; R35.0 Frequency of micturition; R30.0 Dysuria
CPT/HCPCS: 74177; 80048; 81001; 85025; 87070; 87077; 87186; 87205; 96374; 99283; Q9967; A4216

== ENCOUNTER 2019-07-29 11:03 | Emergency (ER) | payer MEDICAID, SELFPAY ==
[2019-07-29 11:05] VITALS: BP 105/69; PULSE 76; RESP 17; TEMP 36.7; O2SAT 98; BMI 36.0
--- NOTE | 2019-07-29 12:00 | CT_ITS ---
STUDY: CT BRAIN WITHOUT CONTRAST REASON FOR EXAM: Female, 24 years old. RADIATION DOSAGE (If Supplied By Facility): CTDIvol = ( 44.99 ) mGy, DLP = ( 745.49 ) mGycm TECHNIQUE: Transaxial CT imaging of the brain was performed without administration of intravenous contrast material. Individualized dose optimization techniques were used for this CT. COMPARISON: No relevant priors. FINDINGS: Normal soft tissue structures. Normal calvarium. Normal size ventricles and extra-axial spaces for the patient's age. Normal white matter tracts of the cerebral hemispheres. Normal basal ganglia and thalami. Normal brainstem. Normal cerebellum. There is no intracranial hemorrhage. There are no findings of an acute ischemic infarction. Normal visualized paranasal sinuses. CT/Brain/Head without Contrast IMPRESSION: Normal unenhanced CT scan of the brain. Electronically Signed: Shahida Sinha, at 13:55 EST Tel , Service support ,
--- NOTE | 2019-07-29 12:07 | ED.VIS.HA ---
History of Present Illness Chief Complaint: Headache Informant: Patient Onset: Days - 16 Context: Gradual Timing: Waxes and wanes Quality: Similar Prior Headaches, Throbbing Associated Symptoms: Sinus Pressure, Photophobia. Negative for: Fever, Nausea, Vomiting, Sore Throat, Visual Changes Narrative: Patient is evaluated for 16 days of a headache. She denies any history of migraines. She states she is got a headache in the past, she can take Tylenol and it resolved. Headache was gradual in onset. She does have a family history of brain aneurysm. Chart review shows that patient had a normal CTA of the brain in the past. Patient has associated photo and phono phobia. She states she feels that she has pain and pain is of her neck. She denies any associated fever or rash. She does have some point she was having some tooth pain but this resolved her headache persisted. Patient is 3 months . She denies any swelling of her legs. She denies any sore throat, cough, urinary symptoms or GI symptoms. Past Medical History - Allergies and Home Meds Allergies/Adverse Reactions: Allergies No Known Allergies Allergy (Verified 07/29/19 11:04) Primary Care Physician: Faraz Gomez MD [STAFF PHYSICIAN] - Surgical History: noncontributory, - - section, cholecystectomy Smoking Status: Never smoker Review of Systems General: Denies: Chills, Fever, Sweats Eyes: Denies: Visual changes - bilaterally, Diplopia ENT: Reports: - - nasal congestion . Denies: Rhinorrhea, Sore throat Cardiovascular: Denies: Chest pain, Palpitations Respiratory: Denies: Dyspnea, Cough, Dyspnea on exertion Gastrointestinal: Denies: Abdominal pain, Nausea, Vomiting, Diarrhea, Melena, Hematochezia Genitourinary: Denies: Dysuria, Hematuria, Frequency Musculoskeletal: Denies: Back pain, Extremity Pain Skin: Denies: Rash, Wounds Neurological: Reports: Headache. Denies: Weakness, Numbness Physical Exam Vital Signs/Narrative: Vital Signs Temp Pulse Resp BP Pulse Ox 07/29/19 11:05 98.1 F 76 17 105/69 98 Inital Vital Signs reviewed: Yes General: Well nourished, Well developed Head: NC, AT Eyes: Perrl, EOMI ENT: Moist mucous membranes, No rhinorrhea Neck: Supple, No Lymphadenopathy, No JVD, Nontender, No Meningismus, Paraspinal Tenderness Cardiovascular: Regular rate, Regular rhythm, No murmurs Respiratory: No distress, CTA bilaterally, Chest nontender Abdomen: Soft, Nontender, Nondistended, Normal bowel sounds Back: Nontender, Normal Inspection Extremities: Nontender, No edema Skin: Normal color, No rash Neuro: Alert, Oriented x3, Cranial nerves II-XII grossly intact, Normal Strength, Normal Sensation, Normal DTR, Normal Gait, - - Finger nose and [id number] normal. Negative for: Abnormal Gait Psychological: Normal affect Diagnostic/Tx/Re-eval Clinical Impression(s) from Imaging Studies Brain CT 07/29/19 12:00 IMPRESSION: Normal unenhanced CT scan of the brain. Electronically Signed: Shahida Sinha, at 13:55 EST Tel , Service support , Laboratory Data 07/29/19 07/29/19 12:30 12:30 Urine Color Yellow Urine Clarity Sl. Cloudy Urine pH 6.0 Ur Specific [place] 1.015 Urine Protein 15 H Urine Glucose (UA) 50 H Urine Ketones Negative Urine Occult Blood 250 H Urine Nitrite Negative Urine Bilirubin Negative Urine Urobilinogen Normal Ur Leukocyte Esterase 25 H Urine RBC 25-50 SEEN Urine WBC 0-5 SEEN Ur Squamous Epith Cells 0-5 SEEN Urine Bacteria 1+ Urine Mucus 0 SEEN Urine Test Negative - Medical Decision Making Patient is evaluated for 16 days of headache. She has a normal neurologic exam. Normal coordination. Fever or meningeal signs. She does have some mild erythema and swelling of her nose and throat. Patient is initially given Compazine and Benadryl for her symptoms. Head CT is obtained to rule out intracranial bleed/acute process. Patient does have extrapyramidal side-effects with the Compazine and is given a dose of benztropine.This improves her akesthesias. After negative head CT, IV toradol is given. She has significant improvement of headache. Urine preg negative. Patient does have hematuria but I suspect thsi is menstrual contamination. She is requesting a work note and states that she is ready to go home. Patient is counseled on signs and symptoms requiring return to the emergency room. Patient verbalizes agreement and understand this plan. Patient discharged home in stable and improved condition. ED Disposition - Plan for ED Patient: Disposition: Home or Assisted Living Diagnosis: Headache Instructions: HEADACHE, Unspecified Referrals: Faraz Gomez MD [STAFF PHYSICIAN] - Additional Instructions: Return with worsening symptoms. Take Tylenol/Motrin as needed for headache. CT of the brain was normal today.
[2019-07-29] MEDS: 0.9% Normal Saline 1,000 ML 999 ML IV (12:26)
[2019-07-29] MEDS: proCHLORPERazine 10 MG/2 ML Vial IV (12:26)
[2019-07-29] MEDS: DiphenhydrAMINE 50 MG/ML Syringe IV (12:26)
[2019-07-29 12:36] LABS: Mucous, Urine 0 SEEN /hpf (<or=2+)
[2019-07-29 12:42] LABS: Color, Urine Yellow (Yellow); Glucose, Dipstick 50 mg/dl (Normal); Ketone-Dipstick Negative (Negative); Leukocyte Esterase-Dipstick 25 /ul (Negative); Nitrite-Dipstick Negative (Negative); Occult Blood-Urine 250 /ul (Negative); Protein-Dipstick 15 mg/dl (Negative); Specific Gravity, Urine 1.015 (1.002-1.030); Urine Bilirubin Dipstick Negative (Negative); Urine Clarity Sl. Cloudy (Clear); Urine Urobilinogen Normal (Normal)
[2019-07-29 12:44] LABS: Internal QC Validated? YES +Cl - CLEAR BKGD; Pregnancy, Urine Negative Negative
[2019-07-29 12:49] LABS: Bacteria 1+ /hpf (None Seen); Red Blood Cells-Urine 25-50 SEEN /hpf (0-5); Squamous Epithelial Cells - UA 0-5 SEEN /hpf (5-10); White Blood Cells 0-5 SEEN /hpf (0-5)
[2019-07-29 13:20] VITALS: RESP 18
[2019-07-29] MEDS: Ketorolac 15 MG/ML Vial IV (15:09)
[2019-07-29 15:10] VITALS: RESP 18
[2019-07-29 16:03] VITALS: BP 130/74; PULSE 80; RESP 16; O2SAT 98
== END 2019-07-29 16:04 | disposition home or self-care (01) ==
PROVIDERS: Emergency Provider Emergency Medicine
DX: R51 Headache (principal)
CPT/HCPCS: 70450; 81001; 81025; 96361; 96374; 96375; 99283; J7030; A4216